=== PATIENT | male | born 1930 | race Caucasian/White ===

== ENCOUNTER 2016-04-13 10:05 | Outpatient (CLI) | payer MEDICARE, OTHER | END 2016-04-13 10:06 | disposition home or self-care (01) | DX: Z79.01 Long term (current) use of anticoagulants (principal); D68.8 Other specified coagulation defects; I63.50 Cerebral infarction due to unspecified occlusion or stenosis of unspecified cerebral artery ==

== ENCOUNTER 2016-05-04 10:21 | Outpatient (CLI) | payer MEDICARE, OTHER | END 2016-05-04 10:22 | disposition home or self-care (01) | DX: I63.50 Cerebral infarction due to unspecified occlusion or stenosis of unspecified cerebral artery (principal); D68.8 Other specified coagulation defects; Z79.01 Long term (current) use of anticoagulants ==

== ENCOUNTER 2016-05-24 11:55 | Outpatient (CLI) | payer MEDICARE, OTHER | END 2016-05-24 11:56 | disposition home or self-care (01) | DX: Z79.01 Long term (current) use of anticoagulants (principal); D68.8 Other specified coagulation defects; I63.50 Cerebral infarction due to unspecified occlusion or stenosis of unspecified cerebral artery ==

== ENCOUNTER 2016-06-15 11:00 | Outpatient (CLI) | payer MEDICARE, OTHER | END 2016-06-15 11:01 | disposition home or self-care (01) | DX: Z79.01 Long term (current) use of anticoagulants (principal); D68.8 Other specified coagulation defects; I63.50 Cerebral infarction due to unspecified occlusion or stenosis of unspecified cerebral artery ==

== ENCOUNTER 2016-07-05 14:52 | Outpatient (CLI) | payer MEDICARE, OTHER | END 2016-07-05 14:53 | disposition home or self-care (01) | DX: Z79.01 Long term (current) use of anticoagulants (principal); I63.50 Cerebral infarction due to unspecified occlusion or stenosis of unspecified cerebral artery; D68.8 Other specified coagulation defects ==

== ENCOUNTER 2016-07-27 11:11 | Outpatient (CLI) | payer MEDICARE, OTHER | END 2016-07-27 11:12 | disposition home or self-care (01) | DX: Z79.01 Long term (current) use of anticoagulants (principal); D68.8 Other specified coagulation defects; I63.50 Cerebral infarction due to unspecified occlusion or stenosis of unspecified cerebral artery ==

== ENCOUNTER 2016-08-17 10:50 | Outpatient (CLI) | payer MEDICARE, OTHER | END 2016-08-17 10:51 | disposition home or self-care (01) | DX: D68.8 Other specified coagulation defects (principal); I63.50 Cerebral infarction due to unspecified occlusion or stenosis of unspecified cerebral artery; Z79.01 Long term (current) use of anticoagulants ==

== ENCOUNTER 2016-08-31 16:01 | Emergency (ER) | payer MEDICARE, OTHER ==
[2016-08-31] MEDS ORDERED: oxyCODONE 5 MG TABLET PO STA (16:41)
[2016-08-31] MEDS ORDERED: oxyCODONE 5 MG TABLET ONE (16:48)
== END 2016-08-31 18:16 | disposition home or self-care (01) ==
DX: N20.1 Calculus of ureter (principal); I10 Essential (primary) hypertension; D68.61 Antiphospholipid syndrome; Q21.1 Atrial septal defect; Z86.73 Personal history of transient ischemic attack (TIA), and cerebral infarction without residual deficits; Z79.01 Long term (current) use of anticoagulants
CPT/HCPCS: 36415; 80048; 81001; 85610; 99283; 99284; A9270

== ENCOUNTER 2016-09-28 09:21 | Outpatient (CLI) | payer MEDICARE, OTHER ==
[2016-09-28 10:06] LABS: INR 3.1 (0.8-1.2); PT - PROTHROMBIN TIME 35.2 secs (9.9-12.6)
== END 2016-09-28 09:22 | disposition home or self-care (01) ==
LOC: LAB 09:21
PROVIDERS: ATTEND Internal Medicine
DX: I63.50 Cerebral infarction due to unspecified occlusion or stenosis of unspecified cerebral artery (principal); D68.8 Other specified coagulation defects; Z79.01 Long term (current) use of anticoagulants
CPT/HCPCS: 36415; 85610

== ENCOUNTER 2016-10-19 12:03 | Outpatient (CLI) | payer MEDICARE, OTHER ==
[2016-10-19 12:36] LABS: PT - PROTHROMBIN TIME 33.7 secs (9.9-12.6)
== END 2016-10-19 12:04 | disposition home or self-care (01) ==
LOC: LAB 12:03
PROVIDERS: ATTEND Internal Medicine
DX: Z79.01 Long term (current) use of anticoagulants (principal)
CPT/HCPCS: 36415; 85610

== ENCOUNTER 2016-11-09 11:44 | Outpatient (CLI) | payer MEDICARE, OTHER ==
[2016-11-09 12:29] LABS: PT - PROTHROMBIN TIME 33.9 secs (9.9-12.6)
== END 2016-11-09 11:45 | disposition home or self-care (01) ==
LOC: LAB 11:44
PROVIDERS: ATTEND Internal Medicine
DX: D68.8 Other specified coagulation defects (principal); Z79.01 Long term (current) use of anticoagulants; I63.50 Cerebral infarction due to unspecified occlusion or stenosis of unspecified cerebral artery
CPT/HCPCS: 36415; 85610

== ENCOUNTER 2016-11-29 11:49 | Outpatient (CLI) | payer MEDICARE, OTHER ==
[2016-11-29 12:53] LABS: INR 2.5 (0.8-1.2); PT - PROTHROMBIN TIME 28.7 secs (9.9-12.6)
== END 2016-11-29 11:50 | disposition home or self-care (01) ==
LOC: LAB 11:49
PROVIDERS: ATTEND Internal Medicine
DX: I63.50 Cerebral infarction due to unspecified occlusion or stenosis of unspecified cerebral artery (principal); D68.8 Other specified coagulation defects; Z79.01 Long term (current) use of anticoagulants
CPT/HCPCS: 36415; 85610

== ENCOUNTER 2016-12-02 11:03 | Outpatient (CLI) | payer MEDICARE, OTHER | END 2016-12-02 11:04 | disposition home or self-care (01) | LOC: EMS 11:03 | PROVIDERS: ATTEND Surgery | DX: Z03.89 Encounter for observation for other suspected diseases and conditions ruled out (principal) ==

== ENCOUNTER 2016-12-21 10:48 | Outpatient (CLI) | payer MEDICARE, OTHER ==
[2016-12-21 11:15] LABS: INR 2.6 (0.8-1.2)
== END 2016-12-21 10:49 | disposition home or self-care (01) ==
LOC: LAB 10:48
PROVIDERS: ATTEND Internal Medicine
DX: Z79.01 Long term (current) use of anticoagulants (principal); D68.8 Other specified coagulation defects; I63.50 Cerebral infarction due to unspecified occlusion or stenosis of unspecified cerebral artery
CPT/HCPCS: 36415; 85610

== ENCOUNTER 2017-01-11 11:26 | Outpatient (CLI) | payer MEDICARE, OTHER ==
[2017-01-11 11:38] LABS: INR 2.6 (0.8-1.2); PT - PROTHROMBIN TIME 29.5 secs (9.9-12.6)
== END 2017-01-11 11:27 | disposition home or self-care (01) ==
LOC: LAB 11:26
PROVIDERS: ATTEND Internal Medicine
DX: I63.50 Cerebral infarction due to unspecified occlusion or stenosis of unspecified cerebral artery (principal); Z79.01 Long term (current) use of anticoagulants; D68.8 Other specified coagulation defects
CPT/HCPCS: 36415; 85610

== ENCOUNTER 2017-02-01 11:52 | Outpatient (CLI) | payer MEDICARE, OTHER ==
[2017-02-01 13:34] LABS: INR 2.8 (0.8-1.2)
== END 2017-02-01 11:53 | disposition home or self-care (01) ==
LOC: LAB 11:52
PROVIDERS: ATTEND Internal Medicine
DX: D68.8 Other specified coagulation defects (principal); I63.50 Cerebral infarction due to unspecified occlusion or stenosis of unspecified cerebral artery; Z79.01 Long term (current) use of anticoagulants
CPT/HCPCS: 36415; 85610

== ENCOUNTER 2017-02-22 10:51 | Outpatient (CLI) | payer MEDICARE, OTHER ==
[2017-02-22 11:14] LABS: INR 2.5 (0.8-1.2); PT - PROTHROMBIN TIME 27.3 secs (9.9-12.6)
== END 2017-02-22 10:52 | disposition home or self-care (01) ==
LOC: LAB 10:51
PROVIDERS: ATTEND Internal Medicine
DX: Z79.01 Long term (current) use of anticoagulants (principal); D68.8 Other specified coagulation defects; I63.50 Cerebral infarction due to unspecified occlusion or stenosis of unspecified cerebral artery
CPT/HCPCS: 36415; 85610

== ENCOUNTER 2017-03-15 11:15 | Outpatient (CLI) | payer MEDICARE, OTHER ==
[2017-03-15 11:55] LABS: INR 2.8 (0.8-1.2); PT - PROTHROMBIN TIME 30.7 secs (9.9-12.6)
== END 2017-03-15 11:16 | disposition home or self-care (01) ==
LOC: LAB 11:15
PROVIDERS: ATTEND Internal Medicine
DX: D68.8 Other specified coagulation defects (principal); Z79.01 Long term (current) use of anticoagulants; I63.50 Cerebral infarction due to unspecified occlusion or stenosis of unspecified cerebral artery
CPT/HCPCS: 36415; 85610

== ENCOUNTER 2017-04-05 10:59 | Outpatient (CLI) | payer MEDICARE, OTHER ==
[2017-04-05 11:43] LABS: INR 2.9 (0.8-1.2); PT - PROTHROMBIN TIME 31.7 secs (9.9-12.6)
== END 2017-04-05 11:00 | disposition home or self-care (01) ==
LOC: LAB 10:59
PROVIDERS: ATTEND Internal Medicine
DX: Z79.01 Long term (current) use of anticoagulants (principal); D68.8 Other specified coagulation defects; I63.50 Cerebral infarction due to unspecified occlusion or stenosis of unspecified cerebral artery
CPT/HCPCS: 36415; 85610

== ENCOUNTER 2017-04-26 11:04 | Outpatient (CLI) | payer MEDICARE, OTHER ==
[2017-04-26 11:49] LABS: INR 2.9 (0.8-1.2); PT - PROTHROMBIN TIME 31.9 secs (9.9-12.6)
== END 2017-04-26 11:05 | disposition home or self-care (01) ==
LOC: LAB 11:04
PROVIDERS: ATTEND Internal Medicine
DX: Z79.01 Long term (current) use of anticoagulants (principal); D68.8 Other specified coagulation defects; I63.50 Cerebral infarction due to unspecified occlusion or stenosis of unspecified cerebral artery
CPT/HCPCS: 36415; 85610

== ENCOUNTER 2017-05-17 11:26 | Outpatient (CLI) | payer MEDICARE, OTHER ==
[2017-05-17 11:50] LABS: INR 2.7 (0.8-1.2); PT - PROTHROMBIN TIME 29.3 secs (9.9-12.6)
== END 2017-05-17 11:27 | disposition home or self-care (01) ==
LOC: LAB 11:26
PROVIDERS: ATTEND Internal Medicine
DX: D68.8 Other specified coagulation defects (principal); I63.50 Cerebral infarction due to unspecified occlusion or stenosis of unspecified cerebral artery; Z79.01 Long term (current) use of anticoagulants
CPT/HCPCS: 36415; 85610

== ENCOUNTER 2017-06-07 13:05 | Outpatient (CLI) | payer MEDICARE, OTHER ==
[2017-06-07 11:24] LABS: INR 3.9 (0.8-1.2); PT - PROTHROMBIN TIME 41.7 secs (9.9-12.6)
== END 2017-06-07 13:06 | disposition home or self-care (01) ==
LOC: LAB 13:05
PROVIDERS: ATTEND Internal Medicine
DX: I63.50 Cerebral infarction due to unspecified occlusion or stenosis of unspecified cerebral artery (principal); D68.8 Other specified coagulation defects; Z79.01 Long term (current) use of anticoagulants
CPT/HCPCS: 36415; 85610

== ENCOUNTER 2017-06-28 11:11 | Outpatient (CLI) | payer MEDICARE, OTHER ==
[2017-06-28 11:28] LABS: INR 3.3 (0.8-1.2); PT - PROTHROMBIN TIME 35.7 secs (9.9-12.6)
== END 2017-06-28 11:12 | disposition home or self-care (01) ==
LOC: LAB 11:11
PROVIDERS: ATTEND Internal Medicine
DX: D68.8 Other specified coagulation defects (principal); I63.50 Cerebral infarction due to unspecified occlusion or stenosis of unspecified cerebral artery; Z79.01 Long term (current) use of anticoagulants
CPT/HCPCS: 36415; 85610

== ENCOUNTER 2017-07-19 11:02 | Outpatient (CLI) | payer MEDICARE, OTHER ==
[2017-07-19 11:20] LABS: INR 2.9 (0.8-1.2); PT - PROTHROMBIN TIME 31.3 secs (9.9-12.6)
== END 2017-07-19 11:03 | disposition home or self-care (01) ==
LOC: LAB 11:02
PROVIDERS: ATTEND Internal Medicine
DX: D68.8 Other specified coagulation defects (principal); I63.50 Cerebral infarction due to unspecified occlusion or stenosis of unspecified cerebral artery; Z79.01 Long term (current) use of anticoagulants
CPT/HCPCS: 36415; 85610

== ENCOUNTER 2017-08-10 13:59 | Outpatient (CLI) | payer MEDICARE, OTHER ==
[2017-08-10 14:24] LABS: INR 3.2 (0.8-1.2); PT - PROTHROMBIN TIME 34.8 secs (9.9-12.6)
== END 2017-08-10 14:00 | disposition home or self-care (01) ==
LOC: LAB 13:59
PROVIDERS: ATTEND Internal Medicine
DX: D68.8 Other specified coagulation defects (principal); I63.50 Cerebral infarction due to unspecified occlusion or stenosis of unspecified cerebral artery; Z79.01 Long term (current) use of anticoagulants
CPT/HCPCS: 36415; 85610

== ENCOUNTER 2017-08-30 11:15 | Outpatient (CLI) | payer MEDICARE, OTHER ==
[2017-08-30 11:51] LABS: PT - PROTHROMBIN TIME 32.3 secs (9.9-12.6)
== END 2017-08-30 11:16 | disposition home or self-care (01) ==
LOC: LAB 11:15
PROVIDERS: ATTEND Internal Medicine
DX: D68.8 Other specified coagulation defects (principal); I63.50 Cerebral infarction due to unspecified occlusion or stenosis of unspecified cerebral artery; Z79.01 Long term (current) use of anticoagulants
CPT/HCPCS: 36415; 85610

== ENCOUNTER 2017-09-20 11:17 | Outpatient (CLI) | payer MEDICARE, OTHER ==
[2017-09-20 11:44] LABS: INR 3.3 (0.8-1.2); PT - PROTHROMBIN TIME 35.2 secs (9.9-12.6)
== END 2017-09-20 11:18 | disposition home or self-care (01) ==
LOC: LAB 11:17
PROVIDERS: ATTEND Internal Medicine
DX: D68.8 Other specified coagulation defects (principal); Z79.01 Long term (current) use of anticoagulants; I63.50 Cerebral infarction due to unspecified occlusion or stenosis of unspecified cerebral artery
CPT/HCPCS: 36415; 85610

== ENCOUNTER 2017-10-10 10:24 | Outpatient (CLI) | payer MEDICARE, OTHER ==
[2017-10-10 10:49] LABS: INR 2.9 (0.8-1.2)
== END 2017-10-10 10:25 | disposition home or self-care (01) ==
LOC: LAB 10:24
PROVIDERS: ATTEND Internal Medicine
DX: I63.50 Cerebral infarction due to unspecified occlusion or stenosis of unspecified cerebral artery (principal); D68.8 Other specified coagulation defects; Z79.01 Long term (current) use of anticoagulants
CPT/HCPCS: 36415; 85610

== ENCOUNTER 2017-11-01 11:33 | Outpatient (CLI) | payer MEDICARE, OTHER ==
[2017-11-01 11:58] LABS: INR 2.9 (0.8-1.2); PT - PROTHROMBIN TIME 31.3 secs (9.9-12.6)
== END 2017-11-01 11:34 | disposition home or self-care (01) ==
LOC: LAB 11:33
PROVIDERS: ATTEND Internal Medicine
DX: Z79.01 Long term (current) use of anticoagulants (principal); D68.8 Other specified coagulation defects; I63.50 Cerebral infarction due to unspecified occlusion or stenosis of unspecified cerebral artery
CPT/HCPCS: 36415; 85610

== ENCOUNTER 2017-11-22 10:54 | Outpatient (CLI) | payer MEDICARE, OTHER ==
[2017-11-22 11:45] LABS: INR 3.1 (0.8-1.2)
== END 2017-11-22 10:55 | disposition home or self-care (01) ==
LOC: LAB 10:54
PROVIDERS: ATTEND Internal Medicine
DX: Z79.01 Long term (current) use of anticoagulants (principal); D68.8 Other specified coagulation defects; I63.50 Cerebral infarction due to unspecified occlusion or stenosis of unspecified cerebral artery
CPT/HCPCS: 36415; 85610

== ENCOUNTER 2017-12-13 11:44 | Outpatient (CLI) | payer MEDICARE, OTHER ==
[2017-12-13 12:37] LABS: INR 3.3 (0.8-1.2); PT - PROTHROMBIN TIME 35.5 secs (9.9-12.6)
== END 2017-12-13 11:45 | disposition home or self-care (01) ==
LOC: LAB 11:44
PROVIDERS: ATTEND Internal Medicine
DX: Z79.01 Long term (current) use of anticoagulants (principal); D68.8 Other specified coagulation defects; I63.50 Cerebral infarction due to unspecified occlusion or stenosis of unspecified cerebral artery
CPT/HCPCS: 36415; 85610

== ENCOUNTER 2018-01-03 11:18 | Outpatient (CLI) | payer MEDICARE, OTHER ==
[2018-01-03 11:49] LABS: INR 3.6 (0.8-1.2)
== END 2018-01-03 11:19 | disposition home or self-care (01) ==
LOC: LAB 11:18
PROVIDERS: ATTEND Internal Medicine
DX: I63.50 Cerebral infarction due to unspecified occlusion or stenosis of unspecified cerebral artery (principal); D68.8 Other specified coagulation defects; Z79.01 Long term (current) use of anticoagulants
CPT/HCPCS: 36415; 85610

== ENCOUNTER 2018-01-24 14:12 | Outpatient (CLI) | payer MEDICARE, OTHER ==
[2018-01-24 14:39] LABS: INR 3.2 (0.8-1.2); PT - PROTHROMBIN TIME 34.4 secs (9.9-12.6)
== END 2018-01-24 14:13 | disposition home or self-care (01) ==
LOC: LAB 14:12
PROVIDERS: ATTEND Internal Medicine
DX: D68.8 Other specified coagulation defects (principal); I63.50 Cerebral infarction due to unspecified occlusion or stenosis of unspecified cerebral artery; Z79.01 Long term (current) use of anticoagulants
CPT/HCPCS: 36415; 85610

== ENCOUNTER 2018-02-14 11:22 | Outpatient (CLI) | payer MEDICARE, OTHER ==
[2018-02-14 11:40] LABS: INR 3.4 (0.8-1.2); PT - PROTHROMBIN TIME 37.1 secs (9.9-12.6)
== END 2018-02-14 11:23 | disposition home or self-care (01) ==
LOC: LAB 11:22
PROVIDERS: ATTEND Internal Medicine
DX: I63.50 Cerebral infarction due to unspecified occlusion or stenosis of unspecified cerebral artery (principal); Z79.01 Long term (current) use of anticoagulants; D68.8 Other specified coagulation defects
CPT/HCPCS: 36415; 85610

== ENCOUNTER 2018-03-07 11:47 | Outpatient (CLI) | payer MEDICARE, OTHER ==
[2018-03-07 12:27] LABS: INR 3.9 (0.8-1.2); PT - PROTHROMBIN TIME 43.5 secs (9.9-12.6)
== END 2018-03-07 11:48 | disposition home or self-care (01) ==
LOC: LAB 11:47
PROVIDERS: ATTEND Internal Medicine
DX: D68.8 Other specified coagulation defects (principal); Z79.01 Long term (current) use of anticoagulants; I63.50 Cerebral infarction due to unspecified occlusion or stenosis of unspecified cerebral artery
CPT/HCPCS: 36415; 85610

== ENCOUNTER 2018-03-28 11:23 | Outpatient (CLI) | payer MEDICARE, OTHER ==
[2018-03-28 11:46] LABS: INR 2.4 (0.8-1.2); PT - PROTHROMBIN TIME 26.8 secs (9.9-12.6)
== END 2018-03-28 11:24 | disposition home or self-care (01) ==
LOC: LAB 11:23
PROVIDERS: ATTEND Internal Medicine
DX: D68.8 Other specified coagulation defects (principal); Z79.01 Long term (current) use of anticoagulants; I63.50 Cerebral infarction due to unspecified occlusion or stenosis of unspecified cerebral artery
CPT/HCPCS: 36415; 85610

== ENCOUNTER 2018-04-18 11:00 | Outpatient (CLI) | payer MEDICARE, OTHER ==
[2018-04-18 11:38] LABS: INR 2.8 (0.8-1.2); PT - PROTHROMBIN TIME 30.8 secs (9.9-12.6)
== END 2018-04-18 11:01 | disposition home or self-care (01) ==
LOC: LAB 11:00
PROVIDERS: ATTEND Internal Medicine
DX: D68.8 Other specified coagulation defects (principal); I63.50 Cerebral infarction due to unspecified occlusion or stenosis of unspecified cerebral artery; Z79.01 Long term (current) use of anticoagulants
CPT/HCPCS: 36415; 85610

== ENCOUNTER 2018-05-09 10:28 | Outpatient (CLI) | payer MEDICARE, OTHER ==
[2018-05-09 11:02] LABS: INR 3.2 (0.8-1.2); PT - PROTHROMBIN TIME 35.5 secs (9.9-12.6)
== END 2018-05-09 10:29 | disposition home or self-care (01) ==
LOC: LAB 10:28
PROVIDERS: ATTEND Internal Medicine
DX: D68.8 Other specified coagulation defects (principal); I63.50 Cerebral infarction due to unspecified occlusion or stenosis of unspecified cerebral artery; Z79.01 Long term (current) use of anticoagulants
CPT/HCPCS: 36415; 85610

== ENCOUNTER 2018-05-30 11:26 | Outpatient (CLI) | payer MEDICARE, OTHER ==
[2018-05-30 12:01] LABS: INR 2.6 (0.8-1.2); PT - PROTHROMBIN TIME 29.2 secs (9.9-12.6)
== END 2018-05-30 11:27 | disposition home or self-care (01) ==
LOC: LAB 11:26
PROVIDERS: ATTEND Internal Medicine
DX: Z79.01 Long term (current) use of anticoagulants (principal); D68.8 Other specified coagulation defects; I63.50 Cerebral infarction due to unspecified occlusion or stenosis of unspecified cerebral artery
CPT/HCPCS: 36415; 85610

== ENCOUNTER 2018-06-20 11:06 | Outpatient (CLI) | payer MEDICARE, OTHER ==
[2018-06-20 11:35] LABS: INR 3.3 (0.8-1.2); PT - PROTHROMBIN TIME 36.1 secs (9.9-12.6)
== END 2018-06-20 11:07 | disposition home or self-care (01) ==
LOC: LAB 11:06
PROVIDERS: ATTEND Internal Medicine
DX: I63.50 Cerebral infarction due to unspecified occlusion or stenosis of unspecified cerebral artery (principal); Z79.01 Long term (current) use of anticoagulants; D68.8 Other specified coagulation defects
CPT/HCPCS: 36415; 85610

== ENCOUNTER 2018-07-11 06:40 | Outpatient (CLI) | payer MEDICARE, OTHER ==
[2018-07-11 13:11] LABS: INR 2.9 (0.8-1.2); PT - PROTHROMBIN TIME 32.2 secs (9.9-12.6)
== END 2018-07-11 06:41 | disposition home or self-care (01) ==
LOC: LAB 06:40
PROVIDERS: ATTEND Internal Medicine
DX: I63.50 Cerebral infarction due to unspecified occlusion or stenosis of unspecified cerebral artery (principal); Z79.01 Long term (current) use of anticoagulants; D68.8 Other specified coagulation defects
CPT/HCPCS: 36415; 85610

== ENCOUNTER 2018-08-01 11:11 | Outpatient (CLI) | payer MEDICARE, OTHER ==
[2018-08-01 11:43] LABS: INR 3.1 (0.8-1.2)
== END 2018-08-01 11:12 | disposition home or self-care (01) ==
LOC: LAB 11:11
PROVIDERS: ATTEND Internal Medicine
DX: I63.50 Cerebral infarction due to unspecified occlusion or stenosis of unspecified cerebral artery (principal); D68.8 Other specified coagulation defects; Z79.01 Long term (current) use of anticoagulants
CPT/HCPCS: 36415; 85610

== ENCOUNTER 2018-08-22 10:35 | Outpatient (CLI) | payer MEDICARE, OTHER ==
[2018-08-22 11:05] LABS: PT - PROTHROMBIN TIME 32.9 secs (9.9-12.6)
== END 2018-08-22 10:36 | disposition home or self-care (01) ==
LOC: LAB 10:35
PROVIDERS: ATTEND Internal Medicine
DX: Z79.01 Long term (current) use of anticoagulants (principal); D68.8 Other specified coagulation defects; I63.50 Cerebral infarction due to unspecified occlusion or stenosis of unspecified cerebral artery
CPT/HCPCS: 36415; 85610

== ENCOUNTER 2018-09-12 11:30 | Outpatient (CLI) | payer MEDICARE, OTHER ==
[2018-09-12 12:19] LABS: INR 3.8 (0.8-1.2); PT - PROTHROMBIN TIME 41.8 secs (9.9-12.6)
== END 2018-09-12 11:31 | disposition home or self-care (01) ==
LOC: LAB 11:30
PROVIDERS: ATTEND Internal Medicine
DX: D68.8 Other specified coagulation defects (principal); Z79.01 Long term (current) use of anticoagulants
CPT/HCPCS: 36415; 85610

== ENCOUNTER 2018-09-19 08:00 | Outpatient (CLI) | payer MEDICARE, OTHER ==
[2018-09-19 12:35] LABS: INR 3.4 (0.8-1.2); PT - PROTHROMBIN TIME 37.2 secs (9.9-12.6)
== END 2018-09-19 23:59 | disposition home or self-care (01) ==
LOC: LAB 08:00
PROVIDERS: ATTEND Internal Medicine
DX: D68.8 Other specified coagulation defects (principal); I63.50 Cerebral infarction due to unspecified occlusion or stenosis of unspecified cerebral artery; Z79.01 Long term (current) use of anticoagulants
CPT/HCPCS: 36415; 85610

== ENCOUNTER 2018-10-10 10:31 | Outpatient (CLI) | payer MEDICARE, OTHER ==
[2018-10-10 11:03] LABS: INR 3.3 (0.8-1.2); PT - PROTHROMBIN TIME 36.8 secs (9.9-12.6)
== END 2018-10-10 10:32 | disposition home or self-care (01) ==
LOC: LAB 10:31
PROVIDERS: ATTEND Internal Medicine
DX: D68.8 Other specified coagulation defects (principal); Z79.01 Long term (current) use of anticoagulants; I63.50 Cerebral infarction due to unspecified occlusion or stenosis of unspecified cerebral artery
CPT/HCPCS: 36415; 85610

== ENCOUNTER 2018-11-21 10:43 | Outpatient (CLI) | payer MEDICARE, OTHER ==
[2018-11-21 11:10] LABS: INR 3.4 (0.8-1.2); PT - PROTHROMBIN TIME 37.1 secs (9.9-12.6)
== END 2018-11-21 10:44 | disposition home or self-care (01) ==
LOC: LAB 10:43
PROVIDERS: ATTEND Internal Medicine
DX: D68.8 Other specified coagulation defects (principal); I63.50 Cerebral infarction due to unspecified occlusion or stenosis of unspecified cerebral artery; Z79.01 Long term (current) use of anticoagulants
CPT/HCPCS: 36415; 85610

== ENCOUNTER 2018-12-12 11:07 | Outpatient (CLI) | payer MEDICARE, OTHER ==
[2018-12-12 11:50] LABS: INR 3.3 (0.8-1.2); PT - PROTHROMBIN TIME 36.2 secs (9.9-12.6)
== END 2018-12-12 11:08 | disposition home or self-care (01) ==
LOC: LAB 11:07
PROVIDERS: ATTEND Internal Medicine
DX: D68.8 Other specified coagulation defects (principal); I63.50 Cerebral infarction due to unspecified occlusion or stenosis of unspecified cerebral artery; Z79.01 Long term (current) use of anticoagulants
CPT/HCPCS: 36415; 85610

== ENCOUNTER 2019-01-01 09:28 | Outpatient (CLI) | payer MEDICARE, OTHER ==
[2019-01-01 09:52] LABS: INR 3.3 (0.8-1.2); PT - PROTHROMBIN TIME 35.3 secs (9.9-12.6)
== END 2019-01-01 09:29 | disposition home or self-care (01) ==
LOC: LAB 09:28
PROVIDERS: ATTEND Internal Medicine
DX: D68.8 Other specified coagulation defects (principal); I63.50 Cerebral infarction due to unspecified occlusion or stenosis of unspecified cerebral artery; Z79.01 Long term (current) use of anticoagulants
CPT/HCPCS: 36415; 85610